=== PATIENT | female | born 1930 | race Caucasian/White ===

== ENCOUNTER 2017-01-22 02:18 | Inpatient (IN) | payer OTHER ==
[2017-01-17 13:06] LABS: URINE SOURCE CLEAN CATCH
[2017-01-17 13:10] LABS: MANUAL DIFF NEEDED? NO
[2017-01-17 13:29] LABS: BILIRUBIN URINE NEGATIVE (NEGATIVE); BLOOD URINE NEGATIVE (NEGATIVE); CLARITY CLEAR (CLEAR); COLOR YELLOW; GLUCOSE URINE NEGATIVE (NEGATIVE); LEUKOCYTES URINE NEGATIVE (NEGATIVE); NITRITE URINE NEGATIVE (NEGATIVE); PROTEIN URINE NEGATIVE (NEGATIVE); UROBILINOGEN URINE 0.2 EU/dL (0.2-1.0)
[2017-01-17 13:31] LABS: INR 0.97; PROTIME 10.3 Seconds (9.2-11.7); PTT 26.9 Seconds (22.0-36.0)
[2017-01-17 13:43] LABS: BASO% 0.2 % (0.0-0.8); EOS# 0.17 X1000 (0.0-0.7); EOS% 1.4 % (0.0-10.0); HEMOGLOBIN 14.7 g/dL (12.0-16.0); IMM GRAN# 0.03 X1000 (0.0-0.04); IMM GRAN% 0.2 % (0.0-0.5); LYMPH# 2.58 X1000 (1.2-3.4); LYMPH% 21.2 % (20.5-51.1); MCH 28.5 PG (27-31); MCV 89.1 FL (81-99); MONO# 0.76 X1000 (0.11-0.59); MONO% 6.2 % (1.7-9.3); MPV 11.8 FL (7.4-10.4); NEUT% 70.8 % (42.2-75.2); PLT 311 X1000 (130-400); RBC 5.16 XMIL (4.2-5.4)
[2017-01-17 13:53] LABS: URINE EPITHELIAL CELLS <10 /HPF (<10); URINE RBC <10 /HPF (<10); URINE WBC <10 /HPF (<10)
[2017-01-17 13:57] LABS: CALCIUM 9.4 mg/dL (8.8-10.2); POTASSIUM 3.7 mmol/L (3.5-5.1)
--- NOTE | 2017-01-17 15:45 | EKG Report ---
Test Performed on : 01/17/2017 12:47:01 PM Test Reason : PAT Blood Pressure : / mmHG Vent. Rate : 108 BPM Atrial Rate : 108 BPM P-R Int : 164 ms QRS Dur : 076 ms QT Int : 326 ms P-R-T Axes : 067 052 055 degrees QTc Int : 436 ms Sinus tachycardia. Possible Inferior infarct , age undetermined Cannot rule out Anterior infarct , age undetermined Abnormal ECG No previous ECGs available Confirmed by Trey Philip MD ([id number]) on 01/17/2017 9:52:37 PM
[2017-01-22] MEDS ORDERED: COLACE ONE (11:17)
[2017-01-22] MEDS ORDERED: CELEBREX ONE (11:17)
[2017-01-22] MEDS ORDERED: PEPCID ONE (11:17)
[2017-01-22] MEDS ORDERED: REGLAN ONE (11:17)
[2017-01-22] MEDS ORDERED: LYRICA ONE (11:17)
[2017-01-22] MEDS ORDERED: VANCOMYCIN 1 GM/NS 250 ML ONE (11:18)
[2017-01-22] MEDS ORDERED: LR 1,000 ML ONE ×3 (11:18→14:27)
[2017-01-22] MEDS ORDERED: FENTANYL ONE (11:56)
[2017-01-22] MEDS ORDERED: VANCOMYCIN ONE (11:56)
[2017-01-22] MEDS ORDERED: TORADOL ONE (11:56)
[2017-01-22] MEDS ORDERED: MARCAINE 0.25% PF/EPI 1:200,000 ONE (11:56)
[2017-01-22] MEDS ORDERED: SODIUM CHLORIDE 0.9% ONE (11:56)
[2017-01-22] MEDS ORDERED: DURAMORPH ONE (11:56)
[2017-01-22] MEDS ORDERED: CYKLOKAPRON 1,000 MG/NS 100 ML ONE ×2 (11:56→14:27)
[2017-01-22] MEDS ORDERED: DIPRIVAN 1% 50 ML ONE ×2 (11:56→14:56)
[2017-01-22] MEDS ORDERED: NEOSPORIN G.U. IRRIGANT ONE (11:57)
[2017-01-22] MEDS ORDERED: EXPAREL 1.3% ONE (11:57)
[2017-01-22 12:33] LABS: URINE MICRO REVIEW NEEDED? NO; URINE SOURCE CATH
[2017-01-22 12:42] LABS: BILIRUBIN URINE NEGATIVE (NEGATIVE); BLOOD URINE NEGATIVE (NEGATIVE); COLOR YELLOW; GLUCOSE URINE NEGATIVE (NEGATIVE); LEUKOCYTES URINE NEGATIVE (NEGATIVE); NITRITE URINE NEGATIVE (NEGATIVE); PH URINE 6.5; PROTEIN URINE NEGATIVE (NEGATIVE); SP GRAVITY URINE 1.014; TURBIDITY URINE CLEAR (CLEAR); UROBILINOGEN URINE NORMAL (NORMAL)
[2017-01-22 12:44] LABS: UR EPITHELIAL CELLS <10 /HPF (<10); URINE BACTERIA NEGATIVE /HPF; URINE RBC <10 /HPF (<10); URINE WBC <10 /HPF (<10)
[2017-01-22] MEDS ORDERED: NS 1,000 ML ONE (14:03)
[2017-01-22] MEDS ORDERED: OXY IR PO PRN (14:14)
[2017-01-22] MEDS ORDERED: MILK OF MAGNESIA PO PRN (14:15)
[2017-01-22] MEDS ORDERED: MORPHINE IV PRN (14:15)
[2017-01-22] MEDS ORDERED: AMBIEN PO PRN (14:16)
[2017-01-22] MEDS ORDERED: ZOFRAN ONE (14:27)
[2017-01-22] MEDS ORDERED: EPHEDRINE ONE (14:27)
[2017-01-22] MEDS ORDERED: OFIRMEV 1000 MG/ISOTONIC SOLN 100 ML ONE (14:27)
[2017-01-22] MEDS ORDERED: XYLOCAINE-MPF 2% ONE (14:27)
[2017-01-22] MEDS ORDERED: DECADRON ONE (14:27)
--- NOTE | 2017-01-22 16:32 | OPERATIVE NOTE ---
PROCEDURE DATE: 01/22/2017 PREOPERATIVE DIAGNOSIS: Left knee degenerative joint disease. POSTOPERATIVE DIAGNOSIS: Left knee degenerative joint disease. PROCEDURE PERFORMED: Left total knee arthroplasty using a [employer] size 5 femoral component, size 5 tibial base plate, an asymmetrical 38 mm patellar component, and a 9 mm articular insert. ANESTHESIA: Spinal. SURGEON: Neville Booth MD. RN DOCUMENT IMPROVEMENT: AGUEDA Robertson SECOND RN DOCUMENT IMPROVEMENT: SHERYL Correa COMPLICATIONS: None. BLOOD LOSS: Minimal. DRAINS: Hemovac x1 description. DESCRIPTION OF PROCEDURE: The patient was brought to the operative suite and placed in supine position. After successful administration of spinal anesthesia, a well-padded tourniquet was placed on the left proximal leg and the left lower extremity was prepped and draped in the usual sterile fashion. A longitudinal incision was made beginning at the superior pole of the patella and extended distally to the tibia tuberosity. Full-thickness skin flaps were elevated medially and laterally. A medial arthrotomy was then made with a vastus snip. The medial capsule was elevated off the medial tibial plateau. The prepatellar fat pad, ACL, PCL, medial meniscus, and lateral meniscus were excised. A drill was entered in the center of the distal femur, an intramedullary guide was placed, distal cutting block was pinned into place. The distal cut was made with the oscillating saw. The femur was sized to size 5. A size 5 cutting block was pinned into place and the anterior cuts, chamfer cuts, and posterior condylar cuts were made with the oscillating saw. Marginal osteophytes removed with a rongeur. A box cutting block was pinned into place. A box cut was made with a box osteotome and an oscillating saw. The posterior condyle osteophytes removed with curved osteotome and rongeur. Attention was then directed to the tibia. A drill was entered in the center of the tibia. An intramedullary guide was placed. Alignment was checked with drop liang, referencing off the anterior cortex of the tibia and the second ray of the foot, and taking 2 mm off the low side of the tibia, which in this case, was medially. The tibial cutting block was pinned into place and then the articular surface of the tibial plateau was removed with an oscillating saw. The flexion- extension gaps were checked and balanced at 9 mm. The tibia sized to size 5. A size 5 guide was used for the fin punch. The tibial trial, femoral trial, and 9 mm insert were placed and taken through range of motion and found to have excellent alignment, balancing, and range of motion. Attention was then directed to the patella and 9 mm of the articular surface of the patella removed with oscillating saw. The patella was sized to size asymmetrical 38. A size asymmetrical 38 guide was used to drill peg holes. The lateral facet was chamfered 30 to 45 degrees. Patella trial was placed and taken through range of motion, found to have excellent patella tracking. All trials were then removed. The knee was copiously irrigated and dried, being certain all bone debris was removed. The tibial component, femoral component, and patellar component were cemented into place, excess cement being removed with a [place]. Once the cement had hardened, excess cement was again removed with an osteotome. The knee was again copiously irrigated and dried, being certain all bone and cement debris were removed. The trial articular insert was removed. The knee was copiously infiltrated with Exparel, including the posterior capsule, anterior capsule, medial and lateral collateral ligaments, and the anterior musculature and subcutaneous tissue. A drain was placed exiting superior laterally and buried in the lateral gutter. The definitive 9 mm articular insert was locked into place. The knee was again taken through range of motion. Again, found to have excellent alignment, balancing, range of motion, and patellar tracking. The knee was again copiously irrigated and dried, and then the medial arthrotomy was closed with 0 Vicryl. Skin edge approximated with 2-0 Vicryl. Skin was closed with skin marco antonio. A sterile dressing was applied. The patient tolerated the procedure well without complication. At the end of the procedure, all counts correct x2. The patient was transferred to the recovery room in stable condition.
[2017-01-22] MEDS: ULTRAM PO SCH ×2 (16:40→23:04)
[2017-01-22] MEDS: TYLENOL PO SCH ×2 (16:41→23:05)
[2017-01-22] MEDS: ZOFRAN IV PRN (17:00)
[2017-01-22] MEDS: NS 1,000 ML IV SCH (17:12)
[2017-01-22] MEDS: LYRICA PO SCH (20:10)
[2017-01-22] MEDS: CELEBREX PO SCH (20:10)
[2017-01-22] MEDS: COLACE PO SCH (20:10)
[2017-01-22] MEDS: KEFZOL 2 GM/D5W 50 ML IV SCH ×2 (20:11→22:42)
[2017-01-22] MEDS: PERIDEX MT SCH (20:11)
[2017-01-23] MEDS: NS 1,000 ML IV SCH ×2 (04:49→16:56)
[2017-01-23] MEDS: TYLENOL PO SCH ×4 (05:24→22:46)
[2017-01-23] MEDS: ULTRAM PO SCH ×4 (05:24→23:58)
[2017-01-23] MEDS: SYNTHROID PO SCH ×2 (05:24→06:13)
[2017-01-23 05:44] LABS: HEMATOCRIT 35.3 % (37.0-47.0); HEMOGLOBIN 11.4 g/dL (12.0-16.0)
[2017-01-23 05:54] LABS: AGAP 11; BUN 16 mg/dL (8-22); CHLORIDE 104 mmol/L (98-107); COSMO 280; POTASSIUM 4.5 mmol/L (3.5-5.1); SODIUM 139 mmol/L (136-145); TCO2 24 mmol/L (25-35)
[2017-01-23] MEDS ORDERED: XARELTO PO SCH (06:00)
[2017-01-23] MEDS: KEFZOL 2 GM/D5W 50 ML IV SCH (06:13)
[2017-01-23] MEDS ORDERED: DECADRON IV ONE (08:00)
--- NOTE | 2017-01-23 08:48 | PROGRESS NOTE ---
DATE: 01/23/2017 SUBJECTIVE: Juanita Chu is an 86-year-old female who is postoperative day 1 from a left total knee arthroplasty. She has no complaints. OBJECTIVE: She is well-developed, well-nourished female. She is alert, oriented and cooperative to exam. Her vital signs are stable. She is afebrile. Her hematocrit is 35.3%. Her leg is neurovascularly intact without sign of infection or deep venous thrombosis. Her dressing is clean, dry, intact as well. ASSESSMENT: Satisfactory postoperative day 1 from a left total knee arthroplasty. PLAN: She plans to go to rehab later in the week. We will continue to work with her with physical therapy. Discontinue her IV fluids, Gonzalez and drain and change her dressing today.
[2017-01-23] MEDS: MAGNESIUM GLUCONATE PO SCH (09:01)
[2017-01-23] MEDS: METAMUCIL PO SCH ×2 (09:02)
[2017-01-23] MEDS: PERIDEX MT SCH ×2 (09:02→22:46)
[2017-01-23] MEDS: CENTRUM SILVER PO SCH (09:02)
[2017-01-23] MEDS: FISH OIL CONCENTRATE PO SCH (09:03)
[2017-01-23] MEDS: CELEBREX PO SCH ×2 (09:03→22:46)
[2017-01-23] MEDS: COLACE PO SCH ×2 (09:05→22:46)
[2017-01-23] MEDS: CALTRATE 600 PO SCH (09:05)
[2017-01-23] MEDS: PEPCID PO SCH (09:08)
[2017-01-23] MEDS: ZOFRAN IV PRN (09:22)
[2017-01-23] MEDS: LYRICA PO SCH ×2 (10:39→22:46)
[2017-01-23] MEDS: EVISTA PO SCH (10:39)
[2017-01-23] MEDS: HYZAAR 100/12.5 MG TAB PO SCH (10:40)
--- NOTE | 2017-01-23 10:58 | Diag Imaging Result Document ---
PROCEDURE NAME: CHEST-PORTABLE - 01/23/2017 PORTABLE CHEST X-RAY: COMPARISON: 09/07/2015. FINDINGS: Lung volumes are much lower. Heart size is probably top normal. No focal infiltrates. Pulmonary vascularity is grossly normal. IMPRESSION: Severely low lung volumes but, otherwise, no acute disease.
[2017-01-23] MEDS: ANTIVERT PO PRN (11:47)
[2017-01-24 05:43] LABS: HEMATOCRIT 30.1 % (37.0-47.0); HEMOGLOBIN 9.7 g/dL (12.0-16.0)
[2017-01-24] MEDS: ULTRAM PO SCH ×3 (05:54→16:46)
[2017-01-24] MEDS: TYLENOL PO SCH ×4 (05:54→22:33)
[2017-01-24] MEDS: SYNTHROID PO SCH ×2 (05:54→07:49)
[2017-01-24] MEDS: NS 1,000 ML IV SCH (07:49)
[2017-01-24] MEDS: EVISTA PO SCH (09:06)
[2017-01-24] MEDS: METAMUCIL PO SCH ×2 (09:06)
[2017-01-24] MEDS: COLACE PO SCH ×2 (09:07→22:33)
[2017-01-24] MEDS: PEPCID PO SCH (09:07)
[2017-01-24] MEDS: FISH OIL CONCENTRATE PO SCH (09:08)
[2017-01-24] MEDS: CELEBREX PO SCH ×2 (09:09→22:33)
[2017-01-24] MEDS: CALTRATE 600 PO SCH (09:10)
[2017-01-24] MEDS: CENTRUM SILVER PO SCH (09:10)
[2017-01-24] MEDS: LYRICA PO SCH ×2 (09:11→22:33)
[2017-01-24] MEDS: MAGNESIUM GLUCONATE PO SCH (09:11)
[2017-01-24] MEDS: ANTIVERT PO PRN (10:57)
[2017-01-24] MEDS: HYZAAR 100/12.5 MG TAB PO SCH (11:43)
[2017-01-24] MEDS: ZOFRAN IV PRN (12:02)
--- NOTE | 2017-01-24 12:59 | PROGRESS NOTE ---
DATE: 01/24/2017 SUBJECTIVE: Juanita Chu is an 86-year-old female who is postoperative day 2 from a left total knee arthroplasty. She had complaints last evening of increased swelling and bruising about her knee. Therefore, we discontinued her Xarelto due to risk of bleeding. OBJECTIVE: She is a well-developed, well-nourished female. She is alert, oriented, and cooperative on exam. Her vital signs are stable. She is afebrile. Her hematocrit is 30.1. She does complain of some nausea and dizziness, but this is something she has had at home as well. Her systolic blood pressure has been around 114. She has walked 125 feet with therapy. ASSESSMENT: Stable postop day 2 visit from a left total knee. PLAN: Continue working with physical therapy. She will likely go to rehab tomorrow.
[2017-01-24] MEDS: PERIDEX MT SCH (22:34)
[2017-01-25] MEDS: ULTRAM PO SCH ×2 (02:06→06:08)
[2017-01-25] MEDS: NS 1,000 ML IV SCH (02:07)
[2017-01-25 06:03] LABS: HEMATOCRIT 28.6 % (37.0-47.0); HEMOGLOBIN 9.1 g/dL (12.0-16.0)
[2017-01-25] MEDS: SYNTHROID PO SCH (06:07)
[2017-01-25] MEDS: PERIDEX MT SCH ×2 (06:07→10:10)
[2017-01-25] MEDS: TYLENOL PO SCH (06:07)
[2017-01-25 07:31] VITALS: BP 121/55
--- NOTE | 2017-01-25 08:55 | DISCHARGE SUMMARY ---
ADMISSION DATE: 01/22/2017 DISCHARGE DATE: 01/25/2017 DISCHARGE DIAGNOSIS: Left knee degenerative joint disease status post left total knee arthroplasty. DISCHARGE MEDICATIONS: See discharge medication list. DISPOSITION: Patient is discharged to rehab. DISCHARGE INSTRUCTIONS: Instructions for total knee arthroplasty protocol. Instructed to return for any signs or symptoms of infection, deep venous thrombosis. Instructed to return to see Dr. Booth next . HOSPITAL COURSE: On the day of admission, the patient underwent left total knee arthroplasty. Her postoperative course was complicated by a hematoma to her left knee. This was treated with compression and discontinuing her anticoagulants, resolving the bleeding. At discharge she is afebrile, tolerating a regular diet, ambulating well with physical therapy. Her wound is clean, dry, intact without sign of infection or deep venous thrombosis. She is discharged to rehab in stable condition with instructions to follow up as described above.
[2017-01-25] MEDS: PEPCID PO SCH (10:11)
[2017-01-25] MEDS: EVISTA PO SCH (10:11)
[2017-01-25] MEDS: MAGNESIUM GLUCONATE PO SCH (10:11)
[2017-01-25] MEDS: CALTRATE 600 PO SCH (10:11)
[2017-01-25] MEDS: METAMUCIL PO SCH ×2 (10:11)
[2017-01-25] MEDS: LYRICA PO SCH (10:11)
[2017-01-25] MEDS: CENTRUM SILVER PO SCH (10:11)
[2017-01-25] MEDS: CELEBREX PO SCH (10:11)
[2017-01-25] MEDS: COLACE PO SCH (10:11)
[2017-01-25] MEDS: HYZAAR 100/12.5 MG TAB PO SCH (10:12)
[2017-01-25] MEDS: FISH OIL CONCENTRATE PO SCH (10:12)
== END 2017-01-25 11:47 | DRG 470 ==
LOC: SURHOLD 02:18 → 4N 12:40
PROVIDERS: ADMIT Orthopaedic Surgery; ATTEND Orthopaedic Surgery
PROC: 0SRD0J9 Replacement of Left Knee Joint with Synthetic Substitute, Cemented, Open Approach (ICD-10-PCS; principal; 2017-01-22 12:12)
DX: M15.9 Polyosteoarthritis, unspecified (principal); I10 Essential (primary) hypertension; E66.9 Obesity, unspecified; M96.840 Postprocedural hematoma of a musculoskeletal structure following a musculoskeletal system procedure; Z83.3 Family history of diabetes mellitus; Z80.3 Family history of malignant neoplasm of breast; Z82.49 Family history of ischemic heart disease and other diseases of the circulatory system; Z87.11 Personal history of peptic ulcer disease; Z92.21 Personal history of antineoplastic chemotherapy; E89.0 Postprocedural hypothyroidism; Z79.899 Other long term (current) drug therapy; Z79.810 Long term (current) use of selective estrogen receptor modulators (SERMs); Z85.3 Personal history of malignant neoplasm of breast
CPT/HCPCS: 71010; 80048; 81001; 85014; 85018; 85025; 85610; 85730; 86850; 86900; 86901; 88305; 88311; 93005; 93010; 94761; 94799; C9290; J0131; J0690; J1100; J1885; J2274; J2405; J3010; J3370; J7030; J7120; 97110-GP; 97116-GP; 97530-GP; S0020